=== PATIENT | female | born 1965 | race Caucasian/White ===

== ENCOUNTER 2017-03-26 21:03 | Emergency (ER) | payer SELFPAY ==
[~2017-03-26] VITALS: Ht 157.5 cm; Wt 61.0 kg
[2017-03-26] MEDS ORDERED: LORazepam 2 MG TABLET PO ONE (21:30)
[2017-03-26] MEDS ORDERED: ACETAMINOPHEN 500 MG TABLET PO ONE (21:30)
[2017-03-26] MEDS ORDERED: PROMETHAZINE-CODEINE PO (21:40)
[2017-03-26] MEDS ORDERED: PRED20 PO (21:40)
[2017-03-26 23:49] VITALS: BP 136/82
== END 2017-03-27 00:30 | disposition home or self-care (01) ==
LOC: EMS 21:05
DX: R45.851 Suicidal ideations (principal); F91.8 Other conduct disorders; F17.210 Nicotine dependence, cigarettes, uncomplicated; Z87.442 Personal history of urinary calculi; Z98.890 Other specified postprocedural states; Z79.899 Other long term (current) drug therapy; Z71.6 Tobacco abuse counseling
CPT/HCPCS: 99285; 99406